=== PATIENT | male | born 1990 ===

== ENCOUNTER 2017-07-28 17:22 | Emergency (ER) | payer BC ==
[2017-07-28 17:37] VITALS: BP 132/86
[2017-07-28] MEDS ORDERED: Ibuprofen TAB* 400 MG PO ONE (17:48)
--- NOTE | 2017-07-28 17:53 | ED ---
GI/ HPI - HPI Summary HPI Summary: 27M presents with fever for the past couple hours. This morning he developed diarrhea. He then became nauseous so he took some zofran. He also took imodium. He has been able to keep oral fluids and soup down. no cough, chest pain or SOB. occasional headache. no sore throat. admits to muscles aches. took Tylenol a half and hour ago. was sick a day ago with similar symptoms. did not eat anything different. occasionally dizziness but has been able to stay hydrated. concerned has flu. no medical conditions. - History of Current Complaint Chief Complaint: UCGeneralIllness Time Seen by Provider: 07/28/17 17:31 Stated Complaint: COUGH, FEVER, Pain Intensity: 5 - Allergy/Home Medications Allergies/Adverse Reactions: Allergies Allergy/AdvReac Type Severity Reaction Status Date / Time No Known Allergies Allergy Verified 07/28/17 17:37 Home Medications: Home Medications Fluticasone Propionate [Flonase Allergy Relief] 50 mcg NA 07/28/17 [History] Ibuprofen 400 mg PO 07/28/17 [History] Ondansetron HCl [Zofran 4 MG TAB] 4 mg PO 07/28/17 [History] PMH/Surg Hx/FS Hx/Imm Hx Endocrine/Hematology History: Denies: Hx Anticoagulant Therapy Respiratory History: Denies: Hx Asthma Infectious Disease History: No Infectious Disease History: Denies: Traveled Outside the [place] in Last 30 Days - Family History Known Family History: Negative: Diabetes - Social History Alcohol Use: Occasionally Substance Use Type: Reports: None Smoking Status (MU): Never Smoked Tobacco Review of Systems Positive: Fever, Chills, Fatigue Negative: Chest Pain Negative: Shortness Of Breath, Cough Positive: Vomiting, Diarrhea, Nausea. Negative: Abdominal Pain All Other Systems Reviewed And Are Negative: Yes Physical Exam Triage Information Reviewed: Yes Vital Signs On Initial Exam: Initial Vitals Temp Pulse Resp BP Pulse Ox 102.0 F 126 18 132/86 98 07/28/17 17:30 07/28/17 17:30 07/28/17 17:30 07/28/17 17:30 07/28/17 17:30 Vital Signs Reviewed: Yes Appearance: Positive: Well-Appearing Skin: Positive: Warm, Dry Head/Face: Positive: Normal Head/Face Inspection Eyes: Positive: Normal, EOMI, LILIBETH, Conjunctiva Clear ENT: Positive: Normal ENT inspection, Pharynx normal, TMs normal Neck: Positive: Supple, Nontender, No Lymphadenopathy Respiratory/Lung Sounds: Positive: Clear to Auscultation, Breath Sounds Present Cardiovascular: Positive: Normal, RRR Abdomen Description: Positive: Nontender, Soft Bowel Sounds: Positive: Present Musculoskeletal: Positive: Normal Neurological: Positive: Normal Psychiatric: Positive: Normal Diagnostics - Vital Signs Vital Signs Temp Pulse Resp BP Pulse Ox 07/28/17 17:30 102.0 F 126 18 132/86 98 - Laboratory Lab Statement: Any lab studies that have been ordered have been reviewed, and results considered in the medical decision making process. GIGU Course/Dx - Course Course Of Treatment: 27M presents with fever for the past couple hours. This morning he developed diarrhea. He then became nauseous so he took some zofran. He also took imodium. He has been able to keep oral fluids and soup down. no cough, chest pain or SOB. occasional headache. no sore throat. admits to muscles aches. took Tylenol a half and hour ago. was sick a day ago with similar symptoms. did not eat anything different. occasionally dizziness but has been able to stay hydrated. concerned has flu. no medical conditions. on exam lungs CTA. abdomen soft nontender. flu neg. will treat with zofran. will have establish care with primary as blood pressure is in pre-htn at this visit. patient understand and agrees with plan. - Diagnoses Differential Diagnoses - Male: Gastroenteritis (Bacterial), Gastroenteritis ( Viral), Other - influenza Provider Diagnoses: Fever, Nausea vomiting and diarrhea Discharge - Sign-Out/Discharge Documenting (check all that apply): Discharge/Admit/Transfer - Discharge Plan Condition: Good Disposition: HOME Prescriptions: Ondansetron ODT TAB* [Zofran 4 MG Odt TAB*] 4 mg PO Q6H PRN #20 tab.odt PRN Reason: Nausea Patient Education Materials: Viral Syndrome (ED) Forms: *Work Release Referrals: [facility] [Outside] Additional Instructions: Can take Zofran every 6 hours as needed for nausea Drink small amounts of fluid as tolerated When able to eat follow BRAT diet: Bananas, rice, applesauce, toast Take ibuprofen or Tylenol for pain as needed every 6 hours for fever Establish care with primary Return to ED if develop any new or worsening symptoms - Billing Disposition and Condition Condition: GOOD Disposition: HOME
== END 2017-07-28 18:20 | disposition home or self-care (01) ==
LOC: UCEAST 17:22
DX: R50.9 Fever, unspecified (principal); R11.2 Nausea with vomiting, unspecified; R19.7 Diarrhea, unspecified
CPT/HCPCS: 87502; 99202; A9270-GY; G0463